=== PATIENT | female | born 1980 | race Caucasian/White ===

== ENCOUNTER 2024-02-07 18:13 | Emergency (ER) | payer OTHER ==
[2024-02-07] MEDS ORDERED: diphenhydrAMINE 50 MG/ML VIAL ONE (19:04)
[2024-02-07] MEDS ORDERED: Metoclopramide HCl 10 MG (2 mL) VIAL ONE (19:04)
[2024-02-07] MEDS ORDERED: Ketorolac Tromethamine 30 MG (1 mL) VIAL ONE (19:05)
[2024-02-07] MEDS ORDERED: Dexamethasone 10 MG/ML VIAL ONE (20:27)
== END 2024-02-07 20:35 | disposition home or self-care (01) ==
LOC: CSHERS 18:13
DX: G43.909 Migraine, unspecified, not intractable, without status migrainosus (principal); J03.90 Acute tonsillitis, unspecified; R11.0 Nausea
CPT/HCPCS: 96365; 96375; J1100; J1200; J1885; J2765

== ENCOUNTER 2024-05-09 09:28 | Observation (INO) | payer OTHER ==
[2024-05-09] MEDS ORDERED: Iopamidol 370 76% 100 ML VIAL ONE (09:48)
[2024-05-09] MEDS ORDERED: Ondansetron PF 4 MG/2 ML Vial ONE (09:49)
[2024-05-09] MEDS ORDERED: Meclizine HCl 25 MG TAB ONE (09:49)
[2024-05-09 10:36] LABS: #Basophils 0.04 10x3/uL (0.0-0.2); #Eosinophils 0.06 10x3/uL (0.0-0.5); #Monocytes 0.34 10x3/uL (0.0-1.1); #Neutrophils 4.23 10x3/uL (1.5-8.4); %Basophils 0.6 % (0.0-2.0); %Lymphocytes 25.1 % (18.0-47.0); %Monocytes 5.4 % (0.0-10.0); %Neutrophils 67.6 % (40.0-75.0); Hematocrit 41.5 % (34.9-44.5); Hemoglobin 13.7 g/dL (12.0-15.5); Mean Corpuscular Hemoglobin 29.7 pg (27.0-33.0); Mean Platelet Volume 10.5 fL (7.4-10.4); Platelet Count 236 10x3/uL (150-450); Red Blood Cell (RBC) Count 4.61 10x6/uL (3.90-5.03); White Blood Cell (WBC) Count 6.3 10x3/uL (3.5-10.5)
[2024-05-09 10:52] LABS: ALT (SGPT) Less than 7 U/L (8-55); AST (SGOT) 13 U/L (5-34); Albumin 3.8 g/dL (3.5-5.0); Alkaline Phosphatase 42 U/L (40-110); Anion Gap 13 mmol/L (10-20); BUN (Urea Nitrogen) 17 mg/dL (7.0-18.7); Bilirubin, Total 0.7 mg/dL (0.2-1.2); Calc. Creatinine Clearance 0 mL/min (70-130); Calcium 9.2 mg/dL (7.8-10.44); Carbon Dioxide 23 mmol/L (22-29); Chloride 107 mmol/L (98-107); Estimated GFR 83; Glucose 120 mg/dL (70-105); Lipase 18 U/L (8-78); Protein, Total 6.8 g/dL (6.0-8.3); Sodium 139 mmol/L (136-145)
[2024-05-09 10:57] LABS: BHCG - Serum Negative (NEGATIVE); Pregs Control Background? CLEAR/WHITE (CLR/WHITE); Pregs Control Bar Appear? YES (CONTROL BAR)
[2024-05-09] MEDS ORDERED: Metoclopramide HCl 10 MG (2 mL) VIAL ONE (11:05)
[2024-05-09] MEDS ORDERED: Diazepam 10 MG/2 ML SYRINGE ONE (11:29)
[2024-05-09] MEDS ORDERED: Ondansetron PF 4 MG/2 ML Vial IVP PRN (14:16)
[2024-05-09] MEDS ORDERED: Meclizine HCl 25 MG TAB PO PRN (14:17)
[2024-05-09 17:33] VITALS: BMI 29.9
[2024-05-09] MEDS: Scopolamine 1 mg/72 hour Patch TD SCH (18:16)
[2024-05-09] MEDS: Sodium Chloride 0.9% 1,000 ML IV SCH (18:16)
[2024-05-09] MEDS: Acetaminophen 325 MG TAB PO PRN (18:19)
[2024-05-10 03:40] LABS: #Basophils 0.03 10x3/uL (0.0-0.2); #Eosinophils 0.11 10x3/uL (0.0-0.5); #Monocytes 0.41 10x3/uL (0.0-1.1); #Neutrophils 4.35 10x3/uL (1.5-8.4); %Basophils 0.4 % (0.0-2.0); %Eosinophils 1.4 % (0.0-6.0); %Lymphocytes 36.2 % (18.0-47.0); %Monocytes 5.3 % (0.0-10.0); %Neutrophils 56.6 % (40.0-75.0); Hemoglobin 11.6 g/dL (12.0-15.5); Mean Corpuscular HGB CONC 32.2 g/dL (32.0-36.0); Mean Corpuscular Hemoglobin 29.4 pg (27.0-33.0); Mean Corpuscular Volume 91.4 fL (81.6-98.3); Mean Platelet Volume 10.6 fL (7.4-10.4); Platelet Count 201 10x3/uL (150-450); RBC Distribution Width 12.2 % (11.5-14.5); Red Blood Cell (RBC) Count 3.94 10x6/uL (3.90-5.03); White Blood Cell (WBC) Count 7.7 10x3/uL (3.5-10.5)
[2024-05-10 04:50] LABS: Anion Gap 10 mmol/L (10-20); BUN (Urea Nitrogen) 13 mg/dL (7.0-18.7); Calc. Creatinine Clearance 110 mL/min (70-130); Calcium 7.7 mg/dL (7.8-10.44); Carbon Dioxide 21 mmol/L (22-29); Chloride 115 mmol/L (98-107); Estimated GFR 89; Glucose 95 mg/dL (70-105); Sodium 142 mmol/L (136-145)
[2024-05-10 07:59] VITALS: TEMP 97.8
[2024-05-10] MEDS: Enoxaparin 40 MG (0.4 mL) SYRINGE SC SCH (09:20)
[2024-05-10 10:41] VITALS: BP 123/57
== END 2024-05-10 11:09 | disposition home or self-care (01) ==
LOC: CSHERS 09:28 → CSHTELE 15:31
PROVIDERS: ADMIT Internal Medicine; ATTEND Internal Medicine
DX: R42 Dizziness and giddiness (principal); R11.2 Nausea with vomiting, unspecified; E86.0 Dehydration; Z88.0 Allergy status to penicillin; Z88.1 Allergy status to other antibiotic agents
CPT/HCPCS: 36415; 70496; 80048; 80053; 83690; 84703; 85025; 93005; 96374; 96375; G0378; J2405; J2765; J3360; J7030; Q9967

== ENCOUNTER 2024-05-23 13:19 | Outpatient (CLI) | payer OTHER | END 2024-05-23 13:20 | disposition home or self-care (01) | LOC: CSHMAMMO 13:19 | PROVIDERS: ATTEND Internal Medicine | DX: Z12.31 Encounter for screening mammogram for malignant neoplasm of breast (principal); N63.21 Unspecified lump in the left breast, upper outer quadrant; Z98.82 Breast implant status | CPT/HCPCS: 77063; 77067 ==

== ENCOUNTER 2024-06-03 12:43 | Outpatient (CLI) | payer OTHER | END 2024-06-03 12:44 | disposition home or self-care (01) | LOC: CSHMAMMO 12:43 | PROVIDERS: ATTEND Internal Medicine | DX: N63.20 Unspecified lump in the left breast, unspecified quadrant (principal) | CPT/HCPCS: G0279 ==

== ENCOUNTER 2024-06-10 09:49 | Outpatient (CLI) | payer OTHER ==
[2024-06-10] MEDS ORDERED: Magnevist 469MG/ML 20 ML VIAL ONE (13:26)
== END 2024-06-10 09:50 | disposition home or self-care (01) ==
LOC: CSHMRI 09:49
PROVIDERS: ATTEND Nurse Practitioner Family
DX: R41.3 Other amnesia (principal)
CPT/HCPCS: 70553; 76376